=== PATIENT | male | born 1970 | race Caucasian/White ===

== ENCOUNTER 2018-12-17 13:07 | Emergency (ER) | payer BC ==
--- NOTE | 2018-12-17 13:40 | CR ---
EXAMINATION: Left wrist HISTORY: Swelling COMPARISON: None TECHNIQUE: 3 views FINDINGS/IMPRESSION: There is no acute osseous abnormality, dislocation, or fracture. Bone mineralization and joint spaces are preserved. Mild soft tissue swelling noted along the ulnar and dorsal aspect of the wrist, without a foreign body or subcutaneous air.
--- NOTE | 2018-12-17 14:31 | EDM.PDOC ---
ED HPI GENERAL MEDICAL PROBLEM - General Chief Complaint: Upper Extremity Injury/Pain Stated Complaint: INJURED WRIST Time Seen by Provider: 12/17/18 13:13 Source of Information: Reports: Patient History Limitations: Reports: No Limitations - History of Present Illness INITIAL COMMENTS - FREE TEXT/NARRATIVE: History of present illness: []Patient complains of left wrist swelling and mild pain. Has been intermittent but the swelling was worse today patient denies any injuries, increased physical activity, repetitive motion, fevers, chills. He has had gout in his feet in the past but is unsure if this is gout. Review of systems: As per history of present illness and below otherwise all systems reviewed and negative. Past medical history: As per history of present illness and as reviewed below otherwise noncontributory. Surgical history: As per history of present illness and as reviewed below otherwise noncontributory. Social history: No reported history of drug or alcohol abuse. Family history: As per history of present illness and as reviewed below otherwise noncontributory. Physical exam: General: Well developed, well nourished in NAD HEENT: Atraumatic, normocephalic, pupils reactive, negative for conjunctival pallor or scleral icterus, mucous membranes moist, throat clear, neck supple, nontender, trachea midline. Lungs: Clear to auscultation, breath sounds equal bilaterally, chest nontender. Heart: S1S2, regular, negative for clicks, rubs, or JVD. Abdomen: NABS, Soft, nondistended, nontender. Negative for masses or hepatosplenomegaly. Negative for costovertebral tenderness. Pelvis: Stable nontender. Genitourinary: Deferred. Rectal: Deferred. Extremities: Atraumatic, negative for cords or calf pain. Neurovascular unremarkable. Neuro: Awake, alert, oriented. Cranial nerves II through XII unremarkable. Cerebellum unremarkable. Motor and sensory unremarkable throughout. Exam nonfocal. Skin:warm and dry Diagnostics: X-ray negative for fracture, CBC normal, uric acid negative, sedimentation rate negative Therapeutics: Declined pain meds, wrist splint ED Course: Stable Impression: Left wrist swelling Prescriptions: None Plan: Ibuprofen, ice, Take meds as directed, follow up with your primary care physician, return to ER if symptoms worsen or change. Definitive disposition and diagnosis as appropriate pending reevaluation and review of above. left hand Pain Score (Numeric/FACES): 5 - Related Data Allergies Allergy/AdvReac Type Severity Reaction Status Date / Time No Known Allergies Allergy Verified 12/17/18 13:21 Home Meds: Home Meds Losartan/Hydrochlorothiazide [Losartan-HCTZ 100-25 MG] 1 tab PO DAILY 12/17/18 [ History] Past Medical History Cardiovascular History: Reports: Hypertension Musculoskeletal History: Reports: Gout - Infectious Disease History Infectious Disease History: Reports: Chicken Pox, Mumps Social & Family History - Family History Family Medical History: Noncontributory - Tobacco Use Smoking Status *Q: Never Smoker - Recreational Drug Use Recreational Drug Use: No Review of Systems - Review of Systems Review Of Systems: ROS reveals no pertinent complaints other than HPI. ED EXAM, GENERAL - Physical Exam Exam: See Below Course - Vital Signs Last Recorded V/S: Last Vital Signs Temp 98.4 F 12/17/18 13:22 Pulse 112 H 12/17/18 13:22 Resp 18 12/17/18 13:22 BP 161/100 H 12/17/18 13:22 Pulse Ox 96 12/17/18 13:22 - Orders/Labs/Meds Orders: Active Orders 24 hr Category Date Time Status Splinting [RC] ASDIRECTED Care 12/17/18 14:19 Active Labs: Laboratory Tests 12/17/18 12/17/18 Range/Units 13:30 13:30 WBC 9.53 (4.0-11.0) K/uL RBC 5.14 (4.50-5.90) M/uL Hgb 15.1 (13.0-17.0) g/dL Hct 43.6 (38.0-50.0) % MCV 84.8 (80.0-98.0) fL MCH 29.4 (27.0-32.0) pg MCHC 34.6 (31.0-37.0) g/dL RDW Std Deviation 39.8 (28.0-62.0) fl RDW Coeff of [place] 13 (11.0-15.0) % Plt Count 196 (150-400) K/uL MPV 10.20 (7.40-12.00) fL Neut % (Auto) 84.6 H (48.0-80.0) % Lymph % (Auto) 11.1 L (16.0-40.0) % Towns % (Auto) 3.5 (0.0-15.0) % Eos % (Auto) 0.5 (0.0-7.0) % Baso % (Auto) 0.3 (0.0-1.5) % Neut # (Auto) 8.1 H (1.4-5.7) K/uL Lymph # (Auto) 1.1 (0.6-2.4) K/uL Towns # (Auto) 0.3 (0.0-0.8) K/uL Eos # (Auto) 0.1 (0.0-0.7) K/uL Baso # (Auto) 0.0 (0.0-0.1) K/uL Nucleated RBC % 0.0 /100WBC Nucleated RBCs # 0 K/uL ESR 11 (0-14) mm/hr Uric Acid 6.4 (2.6-7.2) mg/dL C-Reactive Protein 0.80 (0.00-0.90) mg/dL Departure - Departure Time of Disposition: 14:30 Disposition: Home, Self-Care 01 Condition: Good Clinical Impression: Left wrist pain - Discharge Information *PRESCRIPTION DRUG MONITORING PROGRAM REVIEWED*: No *COPY OF PRESCRIPTION DRUG MONITORING REPORT IN PATIENT ENMANUEL: No Referrals: PCP,Unknown [Primary Care Provider] - Additional Instructions: The following information is given to patients seen in the emergency department who are being discharged to home. This information is to outline your options for follow-up care. We provide all patients seen in our emergency department with a follow-up referral. The need for follow-up, as well as the timing and circumstances, are variable depending upon the specifics of your emergency department visit. If you don't have a primary care physician on staff, we will provide you with a referral. We always advise you to contact your personal physician following an emergency department visit to inform them of the circumstance of the visit and for follow-up with them and/or the need for any referrals to a consulting specialist. The emergency department will also refer you to a specialist when appropriate. This referral assures that you have the opportunity for follow-up care with a specialist. All of these measure are taken in an effort to provide you with optimal care, which includes your follow-up. Under all circumstances we always encourage you to contact your private physician who remains a resource for coordinating your care. When calling for follow-up care, please make the office aware that this follow-up is from your recent emergency room visit. If for any reason you are refused follow-up, please contact the [facility] Emergency Department at and asked to speak to the emergency department charge nurse. Take meds as directed, follow up with your primary care physician, return to ER if symptoms worsen or change. [facility] [address] [place] [id number] - My Orders Last 24 Hours: My Active Orders 12/17/18 14:19 Splinting [RC] ASDIRECTED - Assessment/Plan Last 24 Hours: My Active Orders 12/17/18 14:19 Splinting [RC] ASDIRECTED
== END 2018-12-17 14:49 | disposition home or self-care (01) ==
LOC: MW.ED 13:07
DX: M25.432 Effusion, left wrist (principal); M25.532 Pain in left wrist; I10 Essential (primary) hypertension; Z79.899 Other long term (current) drug therapy
CPT/HCPCS: 36415; 73110-26-LT; 73110-LT; 84550; 85025; 85652; 86140; 99283-25